=== PATIENT | male | born 1940 | race Caucasian/White ===

== ENCOUNTER 2024-08-15 23:02 | Emergency (ER) | payer MEDICARE ==
[~2024-08-15] VITALS: Ht 175.2 cm; Wt 84.8 kg
[2024-08-15 23:31] LABS: BASO % 0.2 % (0.0-1.0); EOS # 0.1 10*3/uL (0.0-0.4); EOS % 0.7 % (1.0-4.0); HEMATOCRIT 45.4 % (42.0-52.0); MEAN CELL VOLUME 94.2 fl (80.0-94.0); MEAN CORPUSCULAR HGB 31.5 pg (27.0-31.0); MEAN CORPUSCULAR HGB CONC 33.5 g/dl (33.0-37.0); MEAN PLATELET VOLUME 9.6 fl (9.6-12.3); MONO # 0.8 10*3/uL (0.1-1.0); MONO % 6.6 % (3.0-9.0); NEUT % 78.1 % (47.0-73.0); PLATELET COUNT AUTOMATED 194 10*3/uL (130-400); RED BLOOD COUNT 4.82 10*6/uL (4.50-5.90); RED CELL DISTRI WIDTH 11.9 % (0-14.5); WHITE BLOOD COUNT 11.5 10*3/uL (4.8-10.8)
[2024-08-15 23:55] LABS: ALKALINE PHOSPHATASE 61 U/L (46-116); BUN 19 mg/dl (9-23); CHLORIDE 104 mmol/L (98-107); LIPASE 55 U/L (12-53); POTASSIUM 4.4 mmol/L (3.4-5.1); SGPT/ALT 12 U/L (5-49); TOTAL PROTEIN 6.8 gm/dL (6.0-8.0)
== END 2024-08-16 01:23 | disposition home or self-care (01) ==
LOC: ED 23:02
PROVIDERS: Internal Medicine
DX: K80.20 Calculus of gallbladder without cholecystitis without obstruction (principal); K82.8 Other specified diseases of gallbladder; N18.31 Chronic kidney disease, stage 3a; Z98.890 Other specified postprocedural states; Z90.49 Acquired absence of other specified parts of digestive tract

== ENCOUNTER → 2024-09-09 | Day surgery (SDC) | payer MEDICARE ==
[2024-09-09] VITALS (10 sets, daily range): BP systolic 121–161; BP diastolic 59–95
[~2024-09-09] VITALS: Ht 175.2 cm; Wt 81.6 kg
[~2024-09-09] MED LIST: ACETAMINOPHEN 100 ML IV ONE; BUPivacaine 0.5% 30 ML IV ONE; Dexamethasone Sodium Phospha 4 MG/ML VIAL IV ONE; Esmolol Hydrochloride 100 MG/10 ML VIAL IV ONE; Labetalol Hydrochloride 20 MG/4 ML SYR IV ONE; Lactated Ringer's Solution 1,000 ML IV ONE; Lidocaine Hydrochloride 2% 5 ML SDV IM ONE; Ondansetron Hydrochloride 4 MG/2 ML VIAL IV ONE; PERCOCET 5-3251 EACH PO; PROPOFOL 200 MG/20 ML VIAL IV ONE; ROCURONIUM BROMIDE 50 MG/5 ML SYRINGE IV ONE; SEVOFLURANE 250 ML BOT INH ONE; SUGAMMADEX SODIUM 200 MG/2 ML VIAL IV ONE; ceFAZolin sodium 2GM/20ML IV ONE; ceFAZolin sodium/sodium chlor 20 ML IV ONE; fentaNYL CITRATE 100 MCG/2 ML VIAL IV ONE
== END | disposition home or self-care (01) ==
LOC: SDC 09-05 12:30
PROVIDERS: ATTEND Surgery
DX: K80.10 Calculus of gallbladder with chronic cholecystitis without obstruction (principal); N18.31 Chronic kidney disease, stage 3a; Z98.890 Other specified postprocedural states; Z79.899 Other long term (current) drug therapy